=== PATIENT | male | born 1960 | race Caucasian/White ===

== ENCOUNTER 2019-02-06 00:02 | Emergency (ER) | payer MEDICAID, OTHER ==
[~2019-02-06] VITALS: Ht 182.9 cm; Wt 89.4 kg
[~2019-02-06 00:02] MED LIST: ATOR20TA PO; OXYC30TA2 PO
[2019-02-06 00:12] VITALS: BP 134/77
--- NOTE | 2019-02-06 00:21 | NUR ---
PT BIBF WITH C/O RIGHT SHOULDER PAIN AND "NUMBESS TO RIGHT HAND". A/OX3. ON ROOM AIR, BREATHING EVEN AND UNLABORED. MD AT BEDSIDE FOR EVAL
--- NOTE | 2019-02-06 00:24 | NUR ---
TECH AT BEDSIDE FOR EKG
[2019-02-06] MEDS ORDERED: CYCLOBENZAPRINE 10 MG TABLET ONE (00:27)
[2019-02-06] MEDS ORDERED: KETOROLAC TROMETHAMINE INJ 60 MG/2 ML VIAL IM ONE ×2 (00:27→00:30)
[2019-02-06] MEDS ORDERED: CYCLOBENZAPRINE 10 MG TABLET PO ONE (00:30)
[2019-02-06] MEDS ORDERED: CARISOPRODOL 350 MG TABLET ONE (00:38)
--- NOTE | 2019-02-06 00:56 | NUR ---
Patient discharged to home in stable condition. Written and verbal after care instructions given. Patient verbalizes understanding of instruction.
[2019-02-06] MEDS ORDERED: CARISOPRODOL 350 MG TABLET PO ONE (01:00)
== END 2019-02-06 00:57 | disposition home or self-care (01) ==
LOC: ER 00:04
DX: S46.811A Strain of other muscles, fascia and tendons at shoulder and upper arm level, right arm, initial encounter (principal); E78.00 Pure hypercholesterolemia, unspecified; G89.29 Other chronic pain; F17.200 Nicotine dependence, unspecified, uncomplicated; Z88.1 Allergy status to other antibiotic agents; X58.XXXA Exposure to other specified factors, initial encounter; Y93.89 Activity, other specified; Y92.89 Other specified places as the place of occurrence of the external cause; Y99.8 Other external cause status
CPT/HCPCS: 93005; 96372; 99283; J1885

== ENCOUNTER 2019-04-28 00:52 | Emergency (ER) | payer MEDICAID ==
[~2019-04-28] VITALS: Ht 182.9 cm; Wt 88.5 kg
[2019-04-28 01:20] VITALS: BP 107/75
== END 2019-04-28 01:40 | disposition home or self-care (01) ==
LOC: ER 00:54
DX: L08.89 Other specified local infections of the skin and subcutaneous tissue (principal); G89.29 Other chronic pain; F17.200 Nicotine dependence, unspecified, uncomplicated; Z88.1 Allergy status to other antibiotic agents; Z79.899 Other long term (current) drug therapy

== ENCOUNTER 2019-06-08 03:22 | Emergency (ER) | payer MEDICAID ==
[~2019-06-08] VITALS: Ht 182.9 cm; Wt 86.2 kg
--- NOTE | 2019-06-08 04:01 | NUR ---
PT CAME IN FOR L FACIAL SWELLING. ABSCESS NOTED. L LOWER CANINE CUT IN HALF. PT AAOX4, VSS, BREATHING EVEN AND UNLABORED ON ROOM AIR W/ NO ACUTE DISTRESS NOTED.
--- NOTE | 2019-06-08 05:05 | NUR ---
at the bed side
--- NOTE | 2019-06-08 05:25 | NUR ---
Patient discharged to home in stable condition. Rx and Written and verbal after care instructions given. Patient verbalizes understanding of instruction.
[2019-06-08 05:26] VITALS: BP 118/82
== END 2019-06-08 05:26 | disposition home or self-care (01) ==
LOC: ER 03:26
DX: K04.7 Periapical abscess without sinus (principal); G89.29 Other chronic pain; F17.200 Nicotine dependence, unspecified, uncomplicated; Z88.1 Allergy status to other antibiotic agents; Z79.899 Other long term (current) drug therapy